=== PATIENT | male | born 1985 | race Caucasian/White ===

== ENCOUNTER 2018-07-26 15:15 | Emergency (ER) | payer BC ==
[~2018-07-26] VITALS: Ht 180.3 cm; Wt 72.6 kg
[2018-07-26] MEDS ORDERED: LIDOCAINE VISC100 ML PO (16:31)
[2018-07-26] MEDS ORDERED: AMOXICILLIN 50500 MG PO (16:31)
[2018-07-26] MEDS ORDERED: IBUPROFEN 800800 MG PO (16:31)
[2018-07-26 16:35] VITALS: BP 126/85
== END 2018-07-26 16:38 | disposition home or self-care (01) ==
LOC: M.ERS 15:15
DX: K08.89 Other specified disorders of teeth and supporting structures (principal); K50.90 Crohn's disease, unspecified, without complications; Z86.2 Personal history of diseases of the blood and blood-forming organs and certain disorders involving the immune mechanism